=== PATIENT | female | born 1960 | race Two or more races ===

== ENCOUNTER 2022-12-06 13:44 | Emergency (ER) | payer OTHER ==
[2022-12-06 14:02] VITALS: RESP 18; BMI 26.0
[2022-12-06] MEDS ORDERED: ACETAMINOPHEN 1000 MG/100 ML BAG IVPB ONE (15:27)
[2022-12-06] MEDS ORDERED: ACETAMINOPHEN INJECTION 100 ML IVPB ONE (15:35)
[2022-12-06] MEDS ORDERED: LACTATED RINGERS SOLUTION 1,000 ML/1,000 ML INFUS.BAG IV SCH (15:45)
[2022-12-06 16:09] LABS: BASO % 0.4 % (0-2.0); EOS % 3.8 % (0-4.5); HEMATOCRIT 42.1 % (32.4-45.2); HEMOGLOBIN 13.6 GM/dL (10.7-15.3); LYMPH % 29.6 % (8-40); MCH 25.9 pg (25.7-33.7); MCHC 32.2 g/dl (32.0-36.0); MEAN CELL VOLUME 80.3 fl (80-96); MEAN PLT VOLUME 8.4 fl (7.5-11.1); MONO % 8.1 % (3.8-10.2); NEUT % 58.1 % (42.8-82.8); PLATELET COUNT 356 10^3/uL (134-434); RBC 5.24 M/mm3 (3.60-5.2); RDW 13.6 % (11.6-15.6); WHITE BLOOD COUNT 11.1 K/mm3 (4.0-10.0)
[2022-12-06 16:21] LABS: INR 1.05 (0.83-1.09); PROTHROMBIN TIME (PATIENT) 12.2 SEC (9.7-13.0)
[2022-12-06 16:24] LABS: ACTIVATED PTT 29.6 SECONDS (25.2-36.5)
[2022-12-06 16:29] LABS: EPI CELLS 12 /uL (0-25.1); HYALINE CASTS 0 /uL (0-3.1); URINE APPEARANCE CLEAR; URINE BACTERIA 26 /uL (0-1359); URINE BILIRUBIN NEGATIVE (NEGATIVE); URINE COLOR YELLOW; URINE GLUCOSE (UA) NEGATIVE (NEGATIVE); URINE KETONE NEGATIVE (NEGATIVE); URINE LEUK ESTERASE TRACE (NEGATIVE); URINE NITRITE NEGATIVE (NEGATIVE); URINE PROTEIN NEGATIVE (NEGATIVE); URINE UROBILINOGEN 0.2 mg/dL (0.2-1.0); URINE WBC 15 /uL (0-25.8)
[2022-12-06 17:32] VITALS: BP 116/77; PULSE 67; TEMP 97.1
[2022-12-06 18:38] LABS: POTASSIUM 4.5 mmol/L (3.5-5.1)
[2022-12-06 18:40] LABS: CALCIUM 9.6 mg/dL (8.5-10.1)
[2022-12-06 18:41] LABS: ALBUMIN 4.1 g/dl (3.4-5.0)
[2022-12-06 18:44] LABS: CREATININE 0.8 mg/dL (0.55-1.3)
[2022-12-06 18:45] LABS: BILIRUBIN,TOTAL 0.2 mg/dL (0.2-1); TOT PROT 8.5 g/dl (6.4-8.2)
[2022-12-06] MEDS ORDERED: AMOX TR/POT CLAV 875MG/125MG TABLETS (FP) PO ONE (20:54)
[2022-12-06] MEDS ORDERED: AZITHROMYCIN 250 MG TABLET PO ONE (20:54)
[2022-12-06] MEDS ORDERED: AMOX TR/POT CLAV 875MG/125MG TABLETS (FP) ONE (20:56)
[2022-12-06] MEDS ORDERED: AZITHROMYCIN 500 MG TABLET ONE (20:57)
== END 2022-12-06 21:26 | disposition home or self-care (01) ==
LOC: JER 13:44
PROC: 3E033NZ Introduction of Analgesics, Hypnotics, Sedatives into Peripheral Vein, Percutaneous Approach (ICD-10-PCS; principal; 2022-12-06)
DX: K62.5 Hemorrhage of anus and rectum (principal); K52.9 Noninfective gastroenteritis and colitis, unspecified; J18.9 Pneumonia, unspecified organism
CPT/HCPCS: 36415; 74177-TC; 80053; 81003; 82272; 83690; 85025; 85610; 85730; 86850; 86900; 86901; 87086; 87186; 99285-25; Q9967